=== PATIENT | male | born 1970 | race Caucasian/White ===

== ENCOUNTER 2023-02-20 12:38 | Outpatient (CLI) | payer OTHER, SELFPAY | END 2023-02-20 12:39 | disposition home or self-care (01) | LOC: LKVREF 12:39 | PROVIDERS: Visit Provider Nurse Practitioner Family | DX: R31.9 Hematuria, unspecified (principal); R35.0 Frequency of micturition; Z12.5 Encounter for screening for malignant neoplasm of prostate | CPT/HCPCS: 84153; 87086 ==

== ENCOUNTER 2023-07-16 08:14 | Outpatient (CLI) | payer OTHER, SELFPAY | END 2023-07-16 08:15 | disposition home or self-care (01) | LOC: NFLDREF 07-18 08:04 | PROVIDERS: PCP Physician Assistant Medical; Referring Provider Physician Assistant Medical; Visit Provider Physician Assistant Medical | DX: Z13.6 Encounter for screening for cardiovascular disorders (principal); Z13.29 Encounter for screening for other suspected endocrine disorder; Z13.9 Encounter for screening, unspecified | CPT/HCPCS: 80053; 80061; 84443 ==

== ENCOUNTER 2024-02-25 09:31 | Outpatient (CLI) | payer OTHER, SELFPAY | END 2024-02-25 09:32 | disposition home or self-care (01) | LOC: FRMREF 09:32 | PROVIDERS: PCP Physician Assistant Medical; Visit Provider Family Medicine | DX: T78.3XXA Angioneurotic edema, initial encounter (principal) | CPT/HCPCS: 86160 ==

== ENCOUNTER 2024-03-24 09:30 | Outpatient (RCR) | payer OTHER, SELFPAY | END 2024-07-22 23:59 | disposition home or self-care (01) | PROVIDERS: PCP Physician Assistant Medical; Visit Provider Family Medicine | DX: M54.30 Sciatica, unspecified side (principal); M79.18 Myalgia, other site; Z51.89 Encounter for other specified aftercare | CPT/HCPCS: 97110; 97161 ==

== ENCOUNTER 2024-06-06 07:22 | Outpatient (CLI) | payer OTHER, SELFPAY | END 2024-06-06 07:23 | disposition home or self-care (01) | LOC: NFLDREF 06-11 20:15 | PROVIDERS: PCP Physician Assistant Medical; Referring Provider Physician Assistant Medical; Visit Provider Nurse Practitioner Family | DX: F41.9 Anxiety disorder, unspecified (principal); R53.83 Other fatigue; R35.0 Frequency of micturition; E66.3 Overweight | CPT/HCPCS: 82306; 82728; 84403 ==

== ENCOUNTER 2024-08-28 08:52 | Outpatient (CLI) | payer OTHER, SELFPAY | END 2024-08-28 08:53 | disposition home or self-care (01) | LOC: NFLDREF 09-01 14:56 | PROVIDERS: PCP Physician Assistant Medical; Referring Provider Physician Assistant Medical; Visit Provider Physician Assistant Medical | DX: Z00.00 Encounter for general adult medical examination without abnormal findings (principal); L97.511 Non-pressure chronic ulcer of other part of right foot limited to breakdown of skin; N40.1 Benign prostatic hyperplasia with lower urinary tract symptoms; R35.0 Frequency of micturition; G47.33 Obstructive sleep apnea (adult) (pediatric); K20.0 Eosinophilic esophagitis; F41.9 Anxiety disorder, unspecified; Z12.5 Encounter for screening for malignant neoplasm of prostate; Z13.6 Encounter for screening for cardiovascular disorders | CPT/HCPCS: 80053; 80061; 84443; G0103 ==

== ENCOUNTER 2024-09-08 07:02 | Outpatient (CLI) | payer OTHER, SELFPAY ==
--- NOTE | 2024-09-08 07:15 | MR_ITS ---
EXAM: MRI of the RIGHT KNEE, without contrast CLINICAL: Male, 54 years old, with medial right knee pain. No reported specific known injury/trauma. INDICATION: Evaluate for medial meniscus tear versus other knee internal derangement etiology. PRIOR SURGERY: None reported. PLAIN FILMS: 08/19/2024 radiographic series of the right knee. COMPARISONS: No prior MRIs available. TECHNICAL: Using a 1.5 Hilda MR scanner and a localizing surface coil: 3.0 mm?sagittals: PD, PDFS 3.0 mm?coronals: PD, STIR 3.0 mm?axials: PD, T2FS SEDATION: None. CONTRAST: None. IMPRESSION: 1. Approximately 1.5 cm irregular inferior surface tear of the medial meniscus posterior horn. 2. Localized mild medial compartment chondromalacia with slight subjacent marrow edema. 3. 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 4. Moderate towards large knee effusion. 5. No lateral meniscus tear. 6. No cruciate or collateral ligament injuries. FINDINGS: Knee joint: Effusion: Moderate towards large right knee joint effusion. Popliteal cyst: None. Loose bodies: None. Subcutaneous and extra-articular soft tissues: Unremarkable. Ligaments: ACL: Intact and normal. PCL: Intact and normal. MCL: Intact and normal. FCL: Intact and normal. Posterolateral corner: Intact popliteus, biceps femoris, iliotibial band, popliteofibular ligament and lateral gastrocnemius. Posteromedial corner: Intact pes anserinus and posterior oblique ligament. Extensor mechanism: Patellar tendon: Intact and normal. Quadriceps tendon: Intact and normal. Retinacula: Intact and normal. Fat pads: Unremarkable. Medial compartment: Medial meniscus: Approximately 1.5 cm irregular tear of inferior surface and apical free edge of the medial meniscus posterior horn (sagittal images 21-26). Although no complete meniscal tear/disruption, moderate 3 mm of peripheral meniscal extrusion suggests an element of decreased medial meniscal load-sharing function (coronal PD series 7, image 18). Medial femoral condyle: Up to 2 approximately 10 mm grade II-III chondromalacia/thinning and irregularity of the medial rim of the medial femoral condyle is accompanied by minimal subjacent marrow edema (coronal images 19-22). Medial tibial plateau: Very localized grade II-III chondromalacia of the medial rim of the medial tibial plateau is accompanied by slight subjacent marrow edema. Lateral compartment: Lateral meniscus: Intact and normal. Lateral femoral condyle: No demonstrable chondromalacia. Lateral tibial plateau: No demonstrable chondromalacia. Patellofemoral joint: Patella: Approximately 1 cm superficial grade II-III chondromalacia of the medial patellar facet is not associated with defined full-thickness chondromalacia/defect or subjacent marrow edema (axial images 8-11). Trochlea: Up to approximately 10 mm irregular grade II-III chondromalacia of the medial femoral trochlea is accompanied by slight subjacent marrow edema. Proximal tibiofibular joint: Unremarkable. Bones: No other marrow edema or fractures. Neurovascular: Popliteal artery/vein: Normal. Anterior tibial artery: No aberrant variant. Tibial nerve: Normal. Popliteal nerve: Normal. Common peroneal nerve: Normal. F Electronically signed on 09/09/2024 5:28:00 AM by Rosas Borden M.D.
== END 2024-09-08 07:03 | disposition home or self-care (01) ==
LOC: MRI 07:03
PROVIDERS: PCP Physician Assistant Medical; Visit Provider Physician Assistant Surgical
DX: M25.561 Pain in right knee (principal); S83.241A Other tear of medial meniscus, current injury, right knee, initial encounter; M94.261 Chondromalacia, right knee; M25.461 Effusion, right knee
CPT/HCPCS: 73721

== ENCOUNTER 2024-10-02 07:30 | Outpatient (RCR) | payer OTHER, SELFPAY | END 2025-01-30 23:59 | disposition home or self-care (01) | PROVIDERS: PCP Physician Assistant Medical; Visit Provider Physician Assistant Surgical | DX: S83.249D Other tear of medial meniscus, current injury, unspecified knee, subsequent encounter (principal); M17.10 Unilateral primary osteoarthritis, unspecified knee; Z51.89 Encounter for other specified aftercare | CPT/HCPCS: 97110; 97162 ==